=== PATIENT | male | born 1960 | race Caucasian/White ===

== ENCOUNTER 2021-03-05 07:04 | Outpatient (REF) | payer BC, SELFPAY ==
[2021-03-05 12:23] LABS: Alanine Aminotransferase 24 U/L (0-40); Anion Gap 12 (12-20); Aspartate Amino Transferase 21 U/L (5-37); Blood Urea Nitrogen 14 mg/dL (9-16); Calcium 9.2 mg/dL (8.4-10.2); Carbon Dioxide 26 mmol/L (22-29); Chloride 106 mmol/L (96-108); Cholesterol 214 mg/dL; Estimated Glomerular Filt Rate > 60; Glucose Fasting 82 mg/dL (60-99); HDL Cholesterol 56 mg/dL; LDL Cholesterol Calculated 141 mg/dl; Potassium 4.6 mmol/L (3.3-5.1); Sodium 139 mmol/L (135-145); Triglycerides 85 mg/dL
== END 2021-03-05 07:05 | disposition home or self-care (01) ==
LOC: HO.HMGCLDS 07:04
PROVIDERS: PCP Internal Medicine; Visit Provider Internal Medicine
DX: Z00.00 Encounter for general adult medical examination without abnormal findings (principal); C61 Malignant neoplasm of prostate; I10 Essential (primary) hypertension
CPT/HCPCS: 36415; 80048; 80061; 84450; 84460

== ENCOUNTER 2022-03-23 06:01 | Outpatient (REF) | payer BC, SELFPAY ==
[2022-03-23 11:43] LABS: Alanine Aminotransferase 20 U/L (0-40); Aspartate Amino Transferase 19 U/L (5-37); Cholesterol 217 mg/dL; Glucose Fasting 87 mg/dL (60-99); HDL Cholesterol 61 mg/dL; LDL Cholesterol Calculated 140 mg/dl; Triglycerides 81 mg/dL
== END 2022-03-23 06:02 | disposition home or self-care (01) ==
LOC: HO.HMGCLDS 06:01
PROVIDERS: PCP Internal Medicine; Visit Provider Internal Medicine
DX: Z00.01 Encounter for general adult medical examination with abnormal findings (principal); E78.5 Hyperlipidemia, unspecified
CPT/HCPCS: 36415; 80061; 82947; 84450; 84460

== ENCOUNTER 2022-11-21 08:08 | Day surgery (SDC) | payer BC, SELFPAY ==
[2022-11-21 08:30] VITALS: BMI 25.6
[2022-11-21] MEDS: Lactated Ringers 1,000 ML 50 ML IVCONT (09:12)
[2022-11-21 09:13] VITALS: BP 135/84; PULSE 72; RESP 18; TEMP 36.8; O2SAT 98
--- NOTE | 2022-11-21 11:06 | HO.ANESPROP2 ---
HPI - Anesthesia Eval Consult details Narrative: screening ho polyp PMFSH Active Problems Active Problems: All Active Problems (Updated 03/25/22 @ 09:06 by Pinky Ortiz MD) Tubular adenoma of colon (Acute) Dyslipidemia (Acute) History of prostate cancer (Acute) Bee sting allergy (Acute) Skin lesion of face (Acute) Past Medical History Medical History Bee sting allergy Dyslipidemia History of prostate cancer Prostate cancer Skin lesion of face Tubular adenoma of colon Family History Family history of problems with anesthesia: No Surgical History Surgical History (Updated 11/18/22 @ 12:58 by Sandra Liang RN) H/O arthroscopic knee surgery H/O bilateral inguinal hernia repair History of robot-assisted laparoscopic radical prostatectomy Hx of colonoscopy History of Problems with Anesthesia: No Social History Social History Housing: House Patient Tobacco Use Status: Never used Tobacco e-Cigarette/Vaping Use: Never Used Are you DNR?: No Advance Directives: No Advance Directives Information Provided: Yes Nutrition Risks: No Nutritional Risk Current occupational status: employed Cognitive needs: No Hearing needs: No Vision needs: Yes Meds Allergies Allergy/AdvReac Type Severity Reaction Status Date / Time No Known Allergies Allergy Verified 03/25/22 08:48 Active Medications: Current Medications Lactated Ringer's (Lr) 1,000 mls @ 50 mls/hr IVCONT .Q20H RENATA Last Admin: 11/21/22 09:12 Dose: 50 mls/hr Sodium Biphosphate/Sodium Phosphate (Sodium Phosphate,[place]-Dibasic 133 Ml Enema) 133 ml CO ONCE PRN PRN Reason: Poor Colonoscopy Prep Results Home Medications Medication Instructions Recorded Confirmed Last Taken Type fluticasone propionate 50 1 spray intranasal BID 03/04/21 03/04/21 Unknown History mcg/actuation nasal spray,suspension (Flonase Allergy Relief) Exam Exam Date and Time: November 21, 2022 1106 Height,Weight and Vital Signs: Height 6 ft 3 in Weight 92.986 kg Last Vital Signs Temp 98.2 F 11/21/22 09:13 Pulse 72 11/21/22 09:13 Resp 18 11/21/22 09:13 BP 135/84 11/21/22 09:13 Pulse Ox 98 11/21/22 09:13 O2 Del Method Room Air 11/21/22 09:13 Airway Mallampati Class: I TM Dist: >3cm Neck ROM: Full Loose/Missing/Broken Teeth: No Heart: rr Lungs: cta Assessment and Plan Final Anesthetic Review Family History of Problems with Anesthesia: No History of Problems with Anesthesia: No NPO: Yes ASA Class: II Final Preanesthetic Review: No Changes in Pt Med Stat, Meds/Allgs Chart Reviewed, Consent Obtained/Reviewed and Anes Risks/Benef Reviewed Patient Risk: Low Procedure Risk: Low Anesthetic Plan Anesthetic Plan: MAC: Disposition: Standard PACU
[2022-11-21 11:26] VITALS: BP 95/62; PULSE 69; RESP 17; TEMP 37; O2SAT 95
--- NOTE | 2022-11-21 11:28 | P.BOP_ITS ---
Brief Operative Note Date of Service: 11/21/22 Pre-op diagnosis: Screening Post-op diagnosis: other (Colon polyp) Procedure: Colonoscopy to the cecum and TI with hot snare polypectomy Surgeon: Freddie Adame Anesthesia: MAC Was an Carpentry Foreman used for this Procedure?: No Estimated blood loss (mL): 0 Pathology: other (A. Transverse colon polyp) Condition: stable Disposition: PACU
[2022-11-21 11:41] VITALS: BP 129/77; PULSE 62; RESP 15; O2SAT 99
[2022-11-21 11:56] VITALS: BP 128/84; PULSE 61; RESP 15; TEMP 37; O2SAT 100
--- NOTE | 2022-11-21 11:59 | OP_ITS ---
DATE OF SERVICE: 11/21/2022 SURGEON: Freddie Adame MD INDICATIONS: The patient presents for evaluation of colorectal cancer screening and personal history of tubular adenoma of the colon. Full consent obtained from him for this, including risks of bleeding and perforation. PREOPERATIVE DIAGNOSIS: POSTOPERATIVE DIAGNOSIS: PROCEDURE PERFORMED: Colonoscopy to the cecum and terminal ileum with hot snare polypectomy. ESTIMATED BLOOD LOSS: COMPLICATIONS: ANESTHESIA: Monitored anesthesia care. ASSISTANTS: SPECIMENS: PREOPERATIVE DIAGNOSES: Colorectal cancer screening and personal history of tubular adenoma of the colon. POSTOPERATIVE DIAGNOSES: Colorectal cancer screening and personal history of tubular adenoma of the colon, colon polyp, diverticulosis and internal hemorrhoids. DESCRIPTION OF PROCEDURE: The patient was placed in the left lateral decubitus position. The digital rectal exam revealed no abnormalities. The Olympus video pediatric colonoscope was entered into the rectum and advanced easily to the cecum. Once in the cecum, I did identify normal-appearing cecal pouch with appendiceal orifice and a normal-appearing ileocecal valve. The terminal ileum was cannulated and appeared normal. Scope withdrawn back in the colon. The entire cecum and ileocecal valve appeared normal. The scope was then slowly withdrawn assessing all mucosal surfaces carefully. Preparation was excellent. In the transverse colon, there was a flat but raised approximately 1.2 cm grossly adenomatous polyp which was removed in piecemeal fashion with pieces recovered by suction. Post polypectomy, there was no sign of any residual polyp nor bleeding. I did not visualize any other polyps, colitis, nor angiodysplasia. There was a mild amount of sigmoid diverticulosis. In the rectum, scope was retroflexed, visualizing internal hemorrhoids, but no other pathology. The rectal mucosa appeared normal. Scope was straightened and withdrawn from the patient. He tolerated the procedure well and was returned to recovery area in stable condition. IMPRESSION: 1. Colon polyp. 2. Diverticulosis. 3. Internal hemorrhoids. PLAN: The results of the pathology will be checked. Assuming this to be a tubular adenoma, I would recommend a followup colonoscopy in 3 years for further surveillance. He was advised not to use any aspirin and NSAIDs for 1 week. This has been discussed with his . MD EARLENE Mendez/[place] / [id number] SHERIDAN
== END 2022-11-21 12:49 | disposition home or self-care (01) ==
PROVIDERS: PCP Internal Medicine; Visit Provider Internal Medicine
PROC: 0DJD8ZZ Inspection of Lower Intestinal Tract, Via Natural or Artificial Opening Endoscopic (ICD-10-PCS; CPT 45378; principal; 2022-11-21 09:50)
DX: Z12.11 Encounter for screening for malignant neoplasm of colon (principal); Z86.010 Personal history of colon polyps; D12.3 Benign neoplasm of transverse colon; K57.30 Diverticulosis of large intestine without perforation or abscess without bleeding; K64.8 Other hemorrhoids; Z85.46 Personal history of malignant neoplasm of prostate
CPT/HCPCS: 45385; 88305

== ENCOUNTER 2023-03-27 06:49 | Outpatient (REF) | payer BC, SELFPAY | END 2023-03-27 06:50 | disposition home or self-care (01) | LOC: HO.HMGCLDS 06:49 | PROVIDERS: PCP Internal Medicine; Visit Provider Internal Medicine | DX: E78.5 Hyperlipidemia, unspecified (principal); D12.6 Benign neoplasm of colon, unspecified; Z85.46 Personal history of malignant neoplasm of prostate | CPT/HCPCS: 36415; 80048; 80061; 82306; 84450; 84460 ==

== ENCOUNTER 2023-03-27 07:32 | Outpatient (AMB) | payer BC, SELFPAY ==
--- NOTE | 2023-03-27 07:55 | MHC.PC.OV ---
Vital Signs 03/27/23 08:00 Height 6 ft 3 in Weight 208 lb BMI 26.0 BP 120/76 Blood Pressure Location Lt brachial Position Sitting Pulse 83 Pulse Source Pulse Oximeter Pulse Oximetry (%) 97 Oxygen Delivery Method Room Air Intake Visit Reasons: annual PE Intake Note: Pt is here today for his PE Allergies No Known Allergies Allergy (Verified 03/27/23 08:15) Medication List - Last Reconciled 03/27/23 by Pinky Ortiz MD epinephrine (EpiPen 2-Huy) 0.3 mg (0.3 mL) IM Q15M PRN fluticasone propionate 50 mcg/actuation (Flonase Allergy Relief) 1 spray intranasal BID Tobacco use date assessed: 03/27/23 Dental Screening Dental Screen Date: 03/27/23 Did you have a dental visit in the last 12 months?: Yes Did you have a dental problem in the last 6 months where you did not have access to dental care?: No Was dental information given to patient?: Patient has dentist HPI annual PE HPI Details 62-year-old male with hyperlipidemia , currently diet controlled, here today for his physical exam. He is up-to-date with screening colonoscopy done earlier this year November [address] Adame with removal of a tubular adenoma, repeat colonoscopy is due again in 5 years. He has been feeling well with no complaints at present time. He has history of prostate cancer currently being followed by [facility] Medical History Dyslipidemia History of prostate cancer Tubular adenoma of colon Bee sting allergy Skin lesion of face Prostate cancer Surgical History H/O bilateral inguinal hernia repair H/O arthroscopic knee surgery Hx of colonoscopy History of robot-assisted laparoscopic radical prostatectomy Social History Housing: House Patient Tobacco Use Status: Never used Tobacco e-Cigarette/Vaping Use: Never Used Current occupational status: employed Cognitive needs: No Hearing needs: No Vision needs: Yes Questionnaire PHQ-9 Over the last 2 weeks, how often have you been bothered by any of the following problems? 1. Little interest or pleasure in doing things: not at all 2. Feeling down, depressed, or hopeless: not at all 3. Trouble falling or staying asleep, or sleeping too much: not at all 4. Feeling tired or having little energy: not at all 5. Poor appetite or overeating: not at all 6. Feeling bad about yourself - or that you are a failure or have let yourself or your family down: not at all 7. Trouble concentrating on things, such as reading the newspaper or watching television: not at all 8. Moving or speaking so slowly that other people could have noticed. Or the opposite - being so fidgety or restless that you have been moving around a lot more than usual: not at all 9. Thoughts that you would be better off or of hurting yourself in some way: not at all Total score: 0 Depression Screening Interpretation: Negative Depression Screening Done: Yes 96128 - PHQ-9 Billing: Yes Source: Developed by Drs. Freddie Agrawal, Alejandra Valera, Ravindra Forrester and colleagues, with an educational roiht from [employer]. Thrive Questionnaire Date Thrive assessed: 03/27/23 I am a: Patient What is your living situation today?: I have a steady place to live Within the past 12 months, did the food you bought not last and you didn't have the money to get more?: Never true Within the past 12 months, did you worry whether your food would run out before you got money to buy more?: Never true Do you have trouble paying for medicines?: No Do you have trouble getting transportation to medical appointments?: No Do you have trouble paying your heating and electricity bill?: No Do you have trouble taking care of your child, family member or friend?: No Do you have trouble with day-to-day activities such as bathing, preparing meals, shopping, managing finances, etc.?: No Are you currently unemployed and looking for a job?: No Are you interested in more education?: No AUDIT C Alcohol Use Questionnaire (AUDIT-C) 1. How often do you have a drink containing alcohol?: Monthly or less 2. How many drinks containing alcohol do you have on a typical day when you are drinking?: 1 or 2 3. How often do you have six or more drinks on one occasion?: Never Total Score: 1 SUGAR-7 AMB Questionnaire SUGAR-7 Date SUGAR - 7 assessed: 03/27/23 Feeling nervous, anxious, or on edge: 0 = Not at all Not being able to stop or control worryin = Not at all Worrying too much about different things: 0 = Not at all Trouble relaxin = Not at all Being so restless that it is hard to sit still: 0 = Not at all Becoming easily annoyed or irritable: 0 = Not at all Feeling afraid as if something awful might happen: 0 = Not at all Total SUGAR-7 score (0-4 normal; 5-9 mild; 10-14 moderate; 15-21 severe): 0 Source: Developed by Drs. Freddie Agrawal, Alejandra Valera, Ravindra Forrester and colleagues, with an educational rohit from [employer]. SUGAR-7 Assessment Billing SUGAR-7 Assessment Tool: SUGAR-7 Assessment 67953 Review of Systems Const Denies fatigue, Reports fever(s), Denies headache(s), Denies malaise and Denies weakness Eyes Details: Currently being followed by Dr. Haywood, ophthalmology, was told that he has beginning cataracts Reports blurry vision (Worse at night) ENT Reports Normal hearing present, Denies dizziness, Denies dry mouth, Denies otalgia, Denies headache(s) and Denies nasal congestion Card Denies chest pain, Denies irregular heart rhythm, Denies lightheadedness, Denies palpitations and Denies dyspnea Resp Denies cough, Denies dyspnea and Denies wheezing GI Denies abdominal pain, Denies melena, Denies hematochezia, Denies change in bowel habits and Denies heartburn Denies hematuria, Denies difficulty urinating, Denies dysuria, Denies penile discharge, Denies testicular mass, Denies urinary hesitancy and Denies urinary incontinence Musc Details: Pain in right knee when going downhill Denies abnormal gait, Denies back pain, Denies arthralgias, Denies joint swelling, Denies muscle cramps, Denies muscle weakness and Denies tingling Skin/Breast Denies lesions and Denies rash Neuro Reports Normal hearing present, Denies abnormal gait, Denies dizziness, Denies headache(s), Denies Sensory deficit (Neuro), Denies tingling, Denies paresthesias and Denies weakness Psych Reports as per HPI Endo Denies cold intolerance, Denies fatigue, Denies polyphagia, Denies polydipsia, Denies polyuria and Denies palpitations Nura/Lymph Denies easy bleeding and Denies easy bruising Aller/Immun Denies seasonal rhinorrhea and Denies wheezing Physical exam (Primary Care) Vital Signs: Last Vital Signs Pulse 83 03/27/23 08:00 BP 120/76 03/27/23 08:00 Pulse Ox 97 03/27/23 08:00 Oxygen Delivery Method Room Air 03/27/23 08:00 BMI result Body Mass Index 26.0 Tobacco/Smoking Status: Tobacco use Status Tobacco use date assessed 03/27/23 03/27/23 07:57 Patient Tobacco Use Status Never used Tobacco 03/27/23 07:57 e-Cigarette/Vaping Use Never Used 03/27/23 07:57 PHQ-9: PHQ-9 Score PHQ-9: Total score 0 03/27/23 08:18 Depression Screening Interpretation: Negative Thrive Assessment: Date of Thrive Assessment Date Thrive assessed 03/27/23 03/27/23 08:03 Const General: cooperative, comfortable and no acute distress Nutritional Appearance: average body habitus Orientation/consciousness: patient oriented x3 Limitations: no limitations HENMT Head: Yes normal to inspection, Yes normocephalic and Yes atraumatic Ears: hearing grossly normal bilaterally, external ears normal, TM's normal bilaterally and EAC's normal General nose exam: Normal external nose present, Normal nasal mucous membranes and turbinates present and No nasal discharge present Face and sinus: Yes normal facial exam, Yes sinuses nontender and Yes face symmetric Mouth: Normal oral and palatal mucosa present, lip normal, tongue normal, oropharynx normal and moist mucous membranes Eyes Conjunctivae: conjunctivae normal Sclerae: sclerae normal Pupils: Equal, round and reactive pupils present EOM: EOMs intact bilaterally Neck Neck: Yes full ROM and Yes no lymphadenopathy Thyroid: Thyroid normal Chest Chest palpation & inspection: normal inspection of the chest Resp Effort & Inspection: normal respiratory effort and able to speak in complete sentences Auscultation: clear to auscultation bilaterally Cardio Jugular venous distension: no JVD Rate: regular rate Rhythm: regular rhythm Heart sounds: S1 normal heart sound present and S2 normal heart sound present GI Inspection: Yes normal to inspection Palpation (GI): Soft to palpation Auscultation: normal bowel sounds General: Yes no CVA tenderness Back/Spine/Pelvis Back: no CVA tenderness Skin General skin exam: no rashes or lesions noted Neuro General: patient oriented x3, gait normal, moves all extremities, no focal motor deficits and CN's II-XI intact bilaterally Cranial nerves: Yes Equal, round and reactive pupils present and Yes Normal hearing present Cognition (Neuro): normal cognition Gait exam (Neuro): Normal gait present Motor exam (neuro): 5/5 motor strength present throughout Sensory Exam: No Sensory deficit (Neuro) Extrem General: Yes normal to inspection, Yes full ROM, Yes no pedal edema and Yes normal gait Psych Appearance: grossly normal and well kempt Mental Status: mental status grossly normal Speech and movement: Normal speech and movement present Affect: normal affect Attitude: cooperative Office Procedures Flu Questionnaire Does the patient have a severe egg allergy?: No Does the patient have severe life threatening allergies?: No Does the patient have a fever or illness today?: No Has the patient ever had Guillain-[place] Syndrome?: No Has the patient ever had any past reaction to a flu shot?: No Immunizations flu vacc [id number] 6mos up(PF) 60 mcg(15 mcgx4)/0.5 mL IM syringe Performing Provider: Pinky Ortiz MD [facility] Administered by: Devika Enamorado CMA on 03/27/23 08:04 Dose Route Admin Location Dispensed Lot Number Expiration Date 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 Continue regular dental visit every 6 months and regular eye exams, at least every [address] Haywood. Continue regular exercise, hikes and bikes regularly for exercise. Instructed to do self-testicular except for any mass. He is up-to-date with her screening colonoscopy done earlier this year by Dr. Adame with removal of a tubular adenoma, procedure to be repeated in 5 years. He is up-to-date with his flu shot, shingles vaccination and Tdap, but does not want to get any further COVID vaccine (2) Dyslipidemia: Code(s): E78.5 - Hyperlipidemia, unspecified Plan: Fasting lipid panel ordered today, continue with regular exercise and adhering to healthy eating habits. (3) Tubular adenoma of colon: Code(s): D12.6 - Benign neoplasm of colon, unspecified Plan: Had a screening colonoscopy done November 2022 with removal of a tubular adenoma, to be repeated in 5 years (4) History of prostate cancer: Comment: s/p RALP 03/17/2020, followed by [facility] Code(s): Z85.46 - Personal history of malignant neoplasm of prostate Plan: Currently followed by urology (5) Bee sting allergy: Code(s): Z91.030 - Bee allergy status Plan: Patient with EpiPen Orders: Orders Influenza [id number] Immunization Today Z23 - Encounter for immunization Coding Level of Care Code Est Pt Prev Care 40-64y(69360) Diagnoses Annual visit for general adult medical examination with abnormal findings Z00.01 Dyslipidemia E78.5 Tubular adenoma of colon D12.6 History of prostate cancer Z85.46 Bee sting allergy Z91.030 Additional Codes SUGAR-7 Assessment Billing - SUGAR-7 Assessment Tool: SUGAR-7 Assessment 87503 ([id number])
[2023-03-27 08:00] VITALS: BP 120/76; PULSE 83; O2SAT 97; BMI 26.0
== END 2023-03-27 08:26 | disposition home or self-care (01) ==
PROVIDERS: Visit Provider Internal Medicine
DX: Z00.00 Encounter for general adult medical examination without abnormal findings (principal); E78.5 Hyperlipidemia, unspecified; D12.6 Benign neoplasm of colon, unspecified; Z85.46 Personal history of malignant neoplasm of prostate; Z91.030 Bee allergy status; Z23 Encounter for immunization
CPT/HCPCS: 90471; 90686; 99396

== ENCOUNTER 2024-04-06 06:58 | Outpatient (REF) | payer BC, SELFPAY ==
[2024-04-06 12:15] LABS: Alanine Aminotransferase 25 U/L (0-40); Aspartate Amino Transferase 24 U/L (5-37); Cholesterol 188 mg/dL (<200); Glucose Fasting 85 mg/dL (60-99); HDL Cholesterol 59 mg/dL (>40); LDL Cholesterol Calculated 117 mg/dL (<100); Triglycerides 63 mg/dL (<150)
== END 2024-04-06 06:59 | disposition home or self-care (01) ==
LOC: HO.HMGCLDS 06:58
PROVIDERS: PCP Internal Medicine; Visit Provider Internal Medicine
DX: E78.5 Hyperlipidemia, unspecified (principal); Z13.1 Encounter for screening for diabetes mellitus
CPT/HCPCS: 36415; 80061; 82947; 84450; 84460

== ENCOUNTER 2024-04-10 07:55 | Outpatient (AMB) | payer BC, SELFPAY ==
--- NOTE | 2024-04-10 07:57 | A.OFFPC_ITS ---
Vital Signs 04/10/24 07:59 Height 6 ft 3 in Weight 208 lb BMI 26.0 BP 124/84 Blood Pressure Location Rt brachial Position Sitting Pulse 85 Pulse Source Pulse Oximeter Pulse Oximetry (%) 99 Oxygen Delivery Method Room Air Intake Visit Reasons: Annual PE Intake Note: Pt is here today for his PE: last colonoscopy 11/21/22 Allergies yellow jacket Allergy (Intermediate, Uncoded 04/10/24 08:27) Swelling Medication List - Last Reconciled 04/10/24 by Pinky Ortiz MD epinephrine (EpiPen 2-Huy) 0.3 mg (0.3 mL) IM Q15M PRN fluticasone propionate 50 mcg/actuation (Flonase Allergy Relief) 1 spray intranasal BID Tobacco use date assessed: 04/10/24 Fall risk assessment: No Falls in past year Last assessed Fall Risk: 04/10/24 Dental Screening Dental Screen Date: 04/10/24 Did you have a dental visit in the last 12 months?: Yes Did you have a dental problem in the last 6 months where you did not have access to dental care?: Yes Was dental information given to patient?: Patient has dentist HPI Annual PE HPI Details 63 year-old male with past medical histo ry of dyslipidemia, currently diet controlled, history of prostate cancer followed by Urology, here today for his annual physical exam. He is up-to-date with her screening colonoscopy done in [address] Adame with removal of a tubular adenoma polyp, repeat colonoscopy due again in 2027. History allergy to bee stings, yellow jackets. Has had 2 separate episodes of being stung on arm, which cause severe swelling and episodes of lightheadedness, has not needed to use an EpiPen but has been brought to the ER . Needs a refill on his EpiPen prescription. Latest fasting labs showed normal lipids, fasting glucose and liver enzymes. Patient states that he has cut out a lot of junk food, and stays active. [facility] Medical History History of adenomatous polyp of colon Dyslipidemia History of prostate cancer Bee sting allergy Skin lesion of face Prostate cancer Surgical History H/O bilateral inguinal hernia repair H/O arthroscopic knee surgery Hx of colonoscopy History of robot-assisted laparoscopic radical prostatectomy Social History Housing: House Patient Tobacco Use Status: Never used Tobacco e-Cigarette/Vaping Use: Never Used Current occupational status: employed Cognitive needs: No Hearing needs: No Vision needs: Yes Questionnaire PHQ-9 Over the last 2 weeks, how often have you been bothered by any of the following problems? 1. Little interest or pleasure in doing things: not at all 2. Feeling down, depressed, or hopeless: not at all 3. Trouble falling or staying asleep, or sleeping too much: not at all 4. Feeling tired or having little energy: not at all 5. Poor appetite or overeating: not at all 6. Feeling bad about yourself - or that you are a failure or have let yourself or your family down: not at all 7. Trouble concentrating on things, such as reading the newspaper or watching television: not at all 8. Moving or speaking so slowly that other people could have noticed. Or the opposite - being so fidgety or restless that you have been moving around a lot more than usual: not at all 9. Thoughts that you would be better off or of hurting yourself in some way: not at all Total score: 0 Depression Screening Interpretation: Negative Depression Screening Done: Yes 44002 - PHQ-9 Billing: Yes Source: Developed by Drs. Freddie Agrawal, Alejandra Valera, Ravindra Forrester and colleagues, with an educational rohit from [employer]. Thrive Questionnaire Date Thrive assessed: 04/10/24 I am a: Patient What is your living situation today?: I have a steady place to live Within the past 12 months, did you worry whether your food would run out before you got money to buy more?: Never true Do you have trouble paying for medicines?: No Do you have trouble getting transportation to medical appointments?: No Do you have trouble paying your heating and electricity bill?: No Do you have trouble taking care of your child, family member or friend?: No Do you have trouble with day-to-day activities such as bathing, preparing meals, shopping, managing finances, etc.?: No Are you interested in more education?: No Please select the resources that you would like help with: None THRIVE Score: 0 AUDIT C Alcohol Use Questionnaire (AUDIT-C) 1. How often do you have a drink containing alcohol?: 2-4 times a month 2. How many drinks containing alcohol do you have on a typical day when you are drinking?: 1 or 2 3. How often do you have six or more drinks on one occasion?: Never Total Score: 2 SUGAR-7 AMB Questionnaire SUGAR-7 Date SUGAR - 7 assessed: 04/10/24 Feeling nervous, anxious, or on edge: 0 = Not at all Not being able to stop or control worryin = Not at all Worrying too much about different things: 0 = Not at all Trouble relaxin = Not at all Being so restless that it is hard to sit still: 0 = Not at all Becoming easily annoyed or irritable: 0 = Not at all Feeling afraid as if something awful might happen: 0 = Not at all Total SUGAR-7 score (0-4 normal; 5-9 mild; 10-14 moderate; 15-21 severe): 0 Source: Developed by Drs. Freddie Agrawal, Alejandra Valera, Ravindra Forrester and colleagues, with an educational rohit from [employer]. SUGAR-7 Assessment Billing SUGAR-7 Assessment Tool: SUGAR-7 Assessment 83281 Review of Systems Const Denies fatigue, Reports fever(s), Denies headache(s), Denies malaise and Denies weakness Eyes Details: Up-to-date with his eye exam, he sees Dr. Haywood, suspect glaucoma Reports blurry vision (Worse at night) ENT Reports Normal hearing present, Denies dizziness, Denies dry mouth, Denies otalgia, Denies headache(s) and Denies nasal congestion Card Denies chest pain, Denies irregular heart rhythm, Denies lightheadedness, Denies palpitations and Denies dyspnea Resp Denies cough, Denies dyspnea and Denies wheezing GI Denies abdominal pain, Denies melena, Denies hematochezia, Denies change in bowel habits and Denies heartburn Details: Sees urologist once a year for follow-up regarding his history of prostate cancer Denies hematuria, Denies difficulty urinating, Denies dysuria, Denies penile discharge, Denies testicular mass, Denies urinary hesitancy and Denies urinary incontinence Musc Denies abnormal gait, Denies back pain, Denies arthralgias, Denies joint swelling, Denies muscle cramps, Denies muscle weakness and Denies tingling Skin/Breast Details: Goes to [facility] once a year for routine skin exam Denies lesions and Denies rash Neuro Reports Normal hearing present, Denies abnormal gait, Denies dizziness, Denies headache(s), Denies Sensory deficit (Neuro), Denies tingling, Denies paresthesias and Denies weakness Psych Reports as per HPI Endo Denies cold intolerance, Denies fatigue, Denies polyphagia, Denies polydipsia, Denies polyuria and Denies palpitations Nura/Lymph Denies easy bleeding and Denies easy bruising Aller/Immun Denies seasonal rhinorrhea and Denies wheezing Physical exam (Primary Care) Vital Signs: Last Vital Signs Pulse 85 04/10/24 07:59 BP 124/84 04/10/24 07:59 Pulse Ox 99 04/10/24 07:59 Oxygen Delivery Method Room Air 04/10/24 07:59 BMI result Body Mass Index 26.0 Tobacco/Smoking Status: Tobacco use Status Tobacco use date assessed 04/10/24 04/10/24 07:59 Patient Tobacco Use Status Never used Tobacco 04/10/24 07:59 e-Cigarette/Vaping Use Never Used 04/10/24 07:59 PHQ-9: PHQ-9 Score PHQ-9: Total score 0 04/11/24 03:45 Depression Screening Interpretation: Negative Thrive Assessment: Date of Thrive Assessment Date Thrive assessed 04/10/24 04/10/24 08:15 Const General: cooperative, comfortable and no acute distress Nutritional Appearance: average body habitus Orientation/consciousness: patient oriented x3 Limitations: no limitations HENMT Head: Yes normal to inspection and Yes normocephalic Ears: external ears normal, TM's normal bilaterally and EAC's normal General nose exam: Normal external nose present, Normal nasal mucous membranes and turbinates present and No nasal discharge present Face and sinus: Yes normal facial exam and Yes face symmetric Mouth: Normal oral and palatal mucosa present, tongue normal, oropharynx normal and moist mucous membranes Eyes Conjunctivae: conjunctivae normal Sclerae: sclerae normal Pupils: Equal, round and reactive pupils present EOM: EOMs intact bilaterally Neck Neck: Yes full ROM and Yes no lymphadenopathy Thyroid: Thyroid normal Chest Chest palpation & inspection: normal inspection of the chest Resp Effort & Inspection: normal respiratory effort and able to speak in complete sentences Auscultation: clear to auscultation bilaterally Cardio Jugular venous distension: no JVD Rate: regular rate Rhythm: regular rhythm Heart sounds: S1 normal heart sound present and S2 normal heart sound present GI Inspection: Yes normal to inspection Palpation (GI): Soft to palpation Auscultation: normal bowel sounds General: Yes no CVA tenderness Back/Spine/Pelvis Back: no CVA tenderness Skin General skin exam: no rashes or lesions noted Neuro General: patient oriented x3, gait normal, moves all extremities, no focal motor deficits and CN's II-XI intact bilaterally Cranial nerves: Yes Equal, round and reactive pupils present and Yes Normal hearing present Cognition (Neuro): normal cognition Gait exam (Neuro): Normal gait present Motor exam (neuro): 5/5 motor strength present throughout Sensory Exam: No Sensory deficit (Neuro) Extrem General: Yes normal to inspection, Yes full ROM, Yes no pedal edema and Yes normal gait Psych Appearance: grossly normal and well kempt Mental Status: mental status grossly normal Speech and movement: Normal speech and movement present Affect: normal affect Attitude: cooperative Office Procedures Flu Questionnaire Does the patient have a severe egg allergy?: No Does the patient have severe life threatening allergies?: No Does the patient have a fever or illness today?: No Has the patient ever had Guillain-Rockford Syndrome?: No Has the patient ever had any past reaction to a flu shot?: No Immunizations Fluarix Triv [id number] (PF) 45 mcg (15 mcg x 3)/0.5 mL IM syringe Performing Provider: Pinky Ortiz MD Performing Location: [facility] Administered by: Devika Enamorado CMA on 04/10/24 08:41 Dose Route Admin Location Dispensed Lot Number Expiration Date [facility] [employer] Manager 0.5 mL IM Right Deltoid 0.5 mL [id number] 12/16/24 [id number] [employer] VIS Given Date VIS Provided VIS Publication Date 04/10/24 Single Vaccine 21 Eligibility Eligibility Date Funding Source Not [facility] Eligible 04/10/24 Private Results Reviewed Results Reviewed: chriss: Jayjay Cuevas Age/Sex: 63/M : 1960 Unit#: [id number] Attend Dr: Pinky Ortiz MD Re04/06/24 Status: DEP [facility] Disch: SPEC : [id number] NAOMI: 04/06/24 STATUS: COMP REQ : [id number] RECD: 04/06/[address]: Pinky Ortiz MD COMP: 04/06/24 ENTERED: 04/06/[address]: ORDERED: Glu Fasting, AST, ALT, Lipid Panel Test Result Flag Reference FBS 85 60-99 mg/dL AST (GOT) 24 5-37 U/L Slight Hemolysis ALT (GPT) 25 0-40 U/L Triglyceride 63 <150 mg/dL Desirable Triglyceride: less than 150 mg/dL Borderline High Triglyceride 150-199 mg/dL High Triglyceride: 200-499 mg/dL Very High Triglyceride: greater than or equal to 5OO mg/dL Cholesterol 188 <200 mg/dL Desirable Cholesterol: less than 200 mg/dL Borderline High Cholesterol: 200-239 mg/dL High Cholesterol: greater than 239 mg/dL LDL Calculated 117 H <100 mg/dL Desirable LDL: less than 100 mg/dL Near Optimal/Above Optimal LDL: 110-129 mg/dL Borderline High LDL: 130-159 mg/dL High LDL: 160-189 mg/dL Very High LDL: greater than or equal to 190 mg/dL HDL 59 >40 mg/dL Desirable HDL: greater than 40 mg/dL Coding Level of Care Code Est Pt Prev Care >65y(57620) Diagnoses Annual visit for general adult medical examination with abnormal findings Z00.01 History of adenomatous polyp of colon Z86.0101 History of prostate cancer Z85.46 Dyslipidemia E78.5 Bee sting allergy Z91.030 Advanced directives, counseling/discussion Z71.89 Additional Codes SUGAR-7 Assessment Billing - SUGAR-7 Assessment Tool: SUGAR-7 Assessment 46908 ([id number]) Assessment & Plan Assessment & Plan (1) Annual visit for general adult medical examination with abnormal findings: Code(s): Z00.01 - Encounter for general adult medical examination with abnormal findings Plan: Reviewed recent fasting lab results with patient. Recommended dental visit every 6 months and regular eye exams, currently being seen by Dr. Haywood Instructed to do self testicular exam check for any mass. Flu vaccine given today, does not want to get a COVID booster, up-to-date with his shingles vaccination and Tdap. Will give him his Prevnar 20 on next visit (2) History of adenomatous polyp of colon: Comment: Seen on colonoscopy done by Dr. Adame in 2022 Code(s): Z86.0101 - Personal history of adenomatous and serrated colon polyps Category: Medical Plan: Repeat colonoscopy due again in 2027 (3) History of prostate cancer: Comment: s/p RALP 03/17/2020, followed by [facility] Code(s): Z85.46 - Personal history of malignant neoplasm of prostate Category: Medical Plan: Followed by [facility] (4) Dyslipidemia: Code(s): E78.5 - Hyperlipidemia, unspecified Category: Medical Plan: Recent fasting labs showed lipids within normal limits, continue with adherence to healthy eating habits and regular exercise (5) Bee sting allergy: Code(s): Z91.030 - Bee allergy status Category: Medical Plan: Refill prescription sent in for 2 pack EpiPen (6) Advanced directives, counseling/discussion: Code(s): Z71.89 - Other specified counseling Plan: Initiated the conversation about Advanced Directives. Advanced Directives help patients prepare for current and future decisions about their medical treatment and place of care. Discussed with patient that it is a process where a patients current condition and prognosis are reviewed, their wishes for information regarding their illness are elicited, and likely medical dilemmas are presented and options discussed. Healthcare proxy form completed today. The form can be amended as needed, reviewed yearly and make changes as needed Orders: Orders Influenza [id number] Immunization 04/10/24 Z23 - Encounter for immunization Medications: Refilled epinephrine (EpiPen 2-Huy) for 2 doses 0.3 mg (0.3 mL) IM Q15M PRN 2 ea 2RF anaphylaxis Z91.030 - Bee allergy status
[2024-04-10 07:59] VITALS: BP 124/84; PULSE 85; O2SAT 99; BMI 26.0
== END 2024-04-10 08:48 | disposition home or self-care (01) ==
LOC: HO.HMCC 07:55
PROVIDERS: PCP Internal Medicine; Visit Provider Internal Medicine
DX: Z00.00 Encounter for general adult medical examination without abnormal findings (principal); E78.5 Hyperlipidemia, unspecified; Z86.0101 Personal history of adenomatous and serrated colon polyps; Z85.46 Personal history of malignant neoplasm of prostate; Z91.030 Bee allergy status; Z71.89 Other specified counseling

== ENCOUNTER → 2024-04-10 07:55 | Outpatient (BNVA) | payer BC, SELFPAY | PROVIDERS: PCP Internal Medicine; Visit Provider Internal Medicine | DX: Z00.01 Encounter for general adult medical examination with abnormal findings (principal); E78.5 Hyperlipidemia, unspecified; Z85.46 Personal history of malignant neoplasm of prostate; Z86.0101 Personal history of adenomatous and serrated colon polyps; Z91.030 Bee allergy status; Z71.89 Other specified counseling; Z23 Encounter for immunization | CPT/HCPCS: 90471; 90656; 96127 ==

== ENCOUNTER 2025-05-13 06:03 | Outpatient (REF) | payer BC, SELFPAY ==
--- OUTSIDE RECORDS SUMMARY | 2025-05-13 06:05 | XMS_ITS | Clinical Summary ---
Author Organization [facility] Address [address] [place] [phone] Phone Care Team Providers Care Meteorology Teacher Name Role Phone Pinky Ortiz MD Primary Care Provider Allergies No known active allergies Medications CIALIS 20 mg tablet Take 20 mg by mouth daily. 6 03/12/2018 Active sildenafiL (VIAGRA) 100 mg tablet Take 100 mg by mouth daily as needed. 05/21/2020 Active Active Problems No known active problems Social History Tobacco Use Types Packs/Day Years Used Date Smoking Tobacco: Never Smokeless Tobacco: Never Alcohol Use Standard Drinks/Week Comments Yes 0 (1 standard drink = 0.6 oz pur e alcohol) Education Answer Date Recorded Are you interested in more education? Not on kaleb e 10/07/2024 Are you concerned about learning? Not on file 10/07/2024 No 10/07/2024 No 10/07/2024 Digital Access Answer Date Recorded No 10/07/2024 No 10/07/2024 Reliable internet access at home? Not on file 10/07/2024 Device with a working camera? Not on file Sex and Gender Information Value Date Recorded Sex Assigned at Not on file Legal Sex Male 6:14 PM EST Gender Identity Not on file Sexual Orientation Not on file Last Filed Vital Signs Vital Sign Reading Time Taken Comments Blood Pressure - - Pulse - - Temperature - - Respiratory Rate - - Oxygen Saturation - - Inhaled Oxygen Concentration - - Weight 95.3 kg (210 lb) 07/15/2020 2:45 PM EST Height 190.5 cm (6' 3 ) 04/11/2018 3:17 PM EDT Body Mass Index 26.25 04/11/2018 3:17 PM EDT Plan of Treatment Health Maintenance Due Date Last Done Comments Adult Td,Tdap Booster 1960 LIPID PANEL 1960 DEPRESSION SCREENING 1970 HEPATITIS C SCREENING 1976 COLOGUARD 11/09/2003 COLONOSCOPY 11/09/2003 COLORECTAL CANCER SCREENING 11/09/2003 FIT TEST 11/09/2003 FOBT 11/09/2003 SIGMOIDOSCOPY 11/09/2003 VIRTUAL COLONOSCOPY 11/09/2003 PNEUMOCOCCAL VACCINES (50+ years) (1 of 1 - PCV) 2008 ZOSTER VACCINES (2 of 2) 08/01/2020 06/06/2020 INFLUENZA VACCINE (#1) 2025 9, 03/03/2018 COVID-19 VACCINE (2 - 2024-2 6 season) 2025 09/08/2020 RSV VACCINE (1 - 1-dose 75+ series) 2033 SMOKING STATUS SCREENING (On ce After 26 Yrs) Completed 07/15/2020 HEPATITIS A VACCINES Aged Out No long er eligible based on patient's age to complete this topic HIB VACCINES Aged Out No longer eligi ble based on patient's age to complete this topic IPV VACCINES Aged Out No longer eligi ble based on patient's age to complete this topic MENINGOCOCCAL VACCINES (ACWY) Aged Out No longer eligible based on patient's age to complete this topic MENINGOCOCCAL VACCINES (B) Aged Out N o longer eligible based on patient's age to complete this topic Medical Devices Not on file Insurance [facility] PPO EPO [facility] PPO [facility]PO [facility] PPO EPO [facility] PPO EPO [facility] PPO EPO Member Subscriber Plan / Payer (Ef fective 2007-Present) Name:Mason Zeferino Relation to Subscriber:Self Name:ZEFERINO CUEVAS JR Payer ID:[id number] (NAIC) Type:PPO Address: [facility] [address] [place], [place] [facility] PPO EPO [facility] PPO EPO Care Teams Meteorology Teacher Relationship Specialty Start Date End Date Pinky Ortiz MD 1963 [facility] [place] [address] PCP - General Internal Medicine 03/21/18 Additional Source Comments The information contained in this document represents components of the legal health record. It is not the complete legal health record.[facility]
[2025-05-13 10:24] LABS: Hematocrit 50.5 % (42.0-52.0); Hemoglobin 17.4 g/dl (14.0-18.0)
[2025-05-13 10:57] LABS: Alanine Aminotransferase 32 U/L (0-40); Anion Gap 11 (12-20); Aspartate Amino Transferase 29 U/L (5-37); Blood Urea Nitrogen 13 mg/dL (9-16); Calcium 9.4 mg/dL (8.4-10.2); Carbon Dioxide 29 mmol/L (22-29); Chloride 105 mmol/L (96-108); Cholesterol 212 mg/dL (<200); Estimated Glomerular Filt Rate > 60; HDL Cholesterol 60 mg/dL (>40); Potassium 4.6 mmol/L (3.3-5.1); Sodium 140 mmol/L (135-145); Triglycerides 98 mg/dL (<150)
== END 2025-05-13 06:04 | disposition home or self-care (01) ==
LOC: HO.HMGCLDS 06:03
PROVIDERS: PCP Internal Medicine; Visit Provider Internal Medicine
DX: Z13.1 Encounter for screening for diabetes mellitus (principal); E78.5 Hyperlipidemia, unspecified; Z86.0101 Personal history of adenomatous and serrated colon polyps; Z13.21 Encounter for screening for nutritional disorder
CPT/HCPCS: 36415; 80048; 80061; 82306; 84450; 84460; 85014; 85018

== ENCOUNTER 2025-05-14 07:57 | Outpatient (AMB) | payer BC, SELFPAY ==
--- OUTSIDE RECORDS SUMMARY | 2025-05-14 08:06 | XMS_ITS | Encounter Summary ---
Author Organization [facility] Address [address] [place] [address] Care Team Providers Care Stave Jointer Name Role Phone Pinky Ortiz MD Primary Care Provider Encounter Details Date Type Department Care Team (Late st Contact Info) Description 07/22/2024 Lab Requisition [facility] - Main Lab [address] [place] [id number] Remy Garcias PA [address] [facility] [address] [place] [address] Personal history of malignant neoplasm of prostate Social History Tobacco Use Types Packs/Day Years Used Date Smoking Tobacco: Never Assessed Sex and Gender Information Value Date Recorded Sex Assigned at Not on file Legal Sex Male 1:01 PM EST Gender Identity Not on file Sexual Orientation Not on file documented as of this encounter Plan of Treatment Not on file documented as of this encounter Procedures Procedure Name Priority Date/Time Associated Diagnosis Comments PROSTATE SPECIFIC ANTIGEN DIAGNOSTIC Routine 07/22/2024 10:26 AM EST Personal history of malignant neoplasm of prostate documented in this encounter Results * Prostate specific antigen diagnostic (07/22/2024 10:26 AM EST) PSA <0.06 0.00 - 4.00 ng/mL LAB CHEMISTRY METHOD 07/22/2024 2:53 PM EST [facility] Blood Venous blood specimen / Unknown 07/22/2024 10:26 AM EST 07/22/2024 1:23 PM EST Narrative [facility] - 07/22/2024 2:53 PM EST The Siemens Advia Centaur Chemiluminescent Immunoassay is used. Results obtained with different assay methods or kits cannot be used interchangeably. Results cannot be interpreted as absolute evidence of the presence or absence of malignant disease. us Remy S[facility] LAB BLOOD ORDERABLES Final Resul t [facility] [address] [place] [address], documented in this encounter Visit Diagnoses Diagnosis Personal history of malignant neoplasm of prostate documented in this encounter Care Teams Stave Jointer Relationship Specialty Start Date End Date Pinky Ortiz MD PCP - General Internal Medicine 07/22/24 documented as of this encounter
--- OUTSIDE RECORDS SUMMARY | 2025-05-14 08:06 | XMS_ITS | Clinical Summary ---
Author Organization [address] Address [address] [place] [phone] Phone Care Team Providers Care Independent Video Producer Name Role Phone Pinky Ortiz MD Primary Care Provider [phone] Social History Tobacco Use Types Packs/Day Years Used Date Smoking Tobacco: Never Assessed Sex and Gender Information Value Date Recorded Sex Assigned at Not on file Legal Sex Male 1:01 PM EST Gender Identity Not on file Sexual Orientation Not on file Plan of Treatment Health Maintenance Due Date Last Done Comments Colorectal Cancer Screening: Colonoscopy 1960 DTaP,Tdap,and Td Vaccines (1 - Tdap) 1977 Pneumococcal Vaccine: 50+ Ye ars (1 of 1 - PCV) 2008 Zoster Vaccines (1 of 2) 2008 Abdominal Aortic Aneurysm (A AA) Screen 05/17/2022 Cholesterol Screening (Lipid Panel) 05/17/2022 Hepatitis C Screening 05/17/2022 Social Influencers of Health Screening 05/17/2022 Falls Risk Assessment 11/09/2023 Depression Screening 06/19/2024 COVID-19 Vaccine (1 - 2024-2 6 season) 2025 Influenza Vaccine (#1) 2025 RSV Immunization Adult Patie nts (1 - 1-dose 75+ series) 2033 HIB Vaccines Aged Out No longer eligi ble based on patient's age to complete this topic HPV Vaccines Aged Out No longer eligi ble based on patient's age to complete this topic Hepatitis A Vaccines Aged Out No long er eligible based on patient's age to complete this topic Hepatitis B Vaccines Aged Out No long er eligible based on patient's age to complete this topic IPV Vaccines Aged Out No longer eligi ble based on patient's age to complete this topic MMR Vaccines Aged Out No longer eligi ble based on patient's age to complete this topic Meningococcal ACWY Vaccine Aged Out N o longer eligible based on patient's age to complete this topic Meningococcal B Vaccine Aged Out No l onger eligible based on patient's age to complete this topic RSV Immunization Patients Un alejandra 20 months Aged Out No longer eligible b ased on patient's age to complete this topic Varicella Vaccines Aged Out No longer eligible based on patient's age to complete this topic Insurance [employer] Care Teams Independent Video Producer Relationship Specialty Start Date End Date Pinky Ortiz MD PCP - General Internal Medicine 07/22/24
--- OUTSIDE RECORDS SUMMARY | 2025-05-14 08:06 | XMS_ITS | Clinical Summary ---
Author Organization [facility] Address [address] [place] [phone] Phone Care Team Providers Care Hoop Punch And Coiler Operator Helper Name Role Phone Pinky Ortiz MD Primary [...] topic Medical Devices Not on file Insurance [facility] PPO EPO [facility] PPO EPO [facility] PPO EPO [facility] PPO EPO Member Subscriber Plan / Payer (Ef fective 2007-Present) Name:Mason Zeferino Relation to Subscriber:Self Name:ZEFERINO CUEVAS JR Payer ID:[id number] (NAIC) Type:PPO Address: [facility] [id number] [place], [place] [facility] PPO EPO [facility] PPO EPO Care Teams Hoop Punch And Coiler Operator Helper Relationship Specialty Start Date End Date Pinky Ortiz MD [address] [facility] [place] [address] PCP - General Internal Medicine 03/21/18 Additional Source Comments The information contained in this document represents components of the legal health record. It is not the complete legal health record.[facility]
--- OUTSIDE RECORDS SUMMARY | 2025-05-14 08:06 | XMS_ITS | Patient Health Record ---
Author Organization 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 Yes How often did you have a drink containing alcohol in the past year? 2 to 4 times a month (2 points) How many drinks did you have on a typical day when you were drinking in the past year? 1 or 2 drinks (0 point) How often did you have 6 or more drinks on one occasion in the past year? 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 [employer] Section Notes: Nonsmoker; occ alcohol Nonsmoker; occ alcohol Problems Problem Type SNOMED Code ICD Code Onset Dates Problem Status W/U Status Risk Notes Problem Screening for malignant neoplasm of colon (906097255) Encounter for screening for malignant neoplasm of colon (Z12.11) Active confirmed Problem Diverticular disease of colon (367794177) Diverticulosis of large intestine without perforation or abscess without bleeding (K57.30) Active confirmed Problem Preprocedural examination (411121128625784) Preprocedural examination (Z01.818) Active confirmed Problem History of adenomatous polyp of colon (455911231) Hx of adenomatous colonic polyps (Z86.010) Active confirmed Plan Of Treatment Pending Test Test Name Order Date Pathology 11/21/2022 Future Test Test Name Order Date COLONOSCOPY 03/01/2017 COLONOSCOPY 09/14/2022 Insurance Providers Payer Name Payer Address Payer Phone Subscriber Number Group Number Insured Name Patient Relationship to Insured Coverage Start Date Coverage End Date [facility] [address] [place], [place] [id number] ZEFERINO CUEVAS Self - patient is the insured Medical (General) History Medical History History ICD Code Denies LA,DM,CVA,Lung disease,renal dise ase Reports a negative colonoscopy at the [facility] at approx age 48 Colonoscopy in 05/2017 with removal of a small tubular adenoma Prostate cancer Surgical History Surgery Date(Month/Year) Right knee ACL Bilateral inguinal hernia repairs Prostatectomy
[2025-05-14 08:26] VITALS: BP 132/80; PULSE 88; RESP 16; TEMP 36.6; O2SAT 98; BMI 25.4
--- NOTE | 2025-05-14 08:26 | MHC.PC.OV ---
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 Allergies yellow jacket Allergy (Intermediate, Uncoded 05/14/25 08:49) Swelling Medication List - Last Reconciled 05/14/25 by Pinky Ortiz MD epinephrine (EpiPen 2-Huy) 0.3 mg (0.3 mL) IM Q15M PRN fluticasone propionate 50 mcg/actuation (Flonase Allergy Relief) 1 spray intranasal BID Tobacco use date assessed: 05/14/25 Fall risk assessment: No Falls in past year Dental Screening Dental Screen Date: 05/14/25 Did you have a dental visit in the last 12 months?: Yes Did you have a dental problem in the last 6 months where you did not have access to dental care?: Yes Was dental information given to patient?: Patient has dentist HPI Annual PE HPI Details 64-year-old male presents today for his physical exam. Last colonoscopy was done November 2022 , done by Dr. Adame, with removal of a tubular adenoma polyp, repeat due again in 2027. Had recent fasting labs done , with no evidence of anemia, fasting glucose, lipids vitamin-D, liver electrolytes renal function all within normal limits except for slightly elevated LDL cholesterol. Currently being seen at [facility] due to positive history for prostate cancer, last seen earlier this year with PSA undetectable Currently sees [facility] diagnosed with squamous cell CA on left anterior neck, scheduled for Mohs surgery on May 29/2025 [facility] Medical History (Updated 05/14/25 @ 09:11 by Pinky Ortiz MD) Squamous cell carcinoma of skin of other parts of face History of adenomatous polyp of colon Dyslipidemia History of prostate cancer Bee sting allergy Surgical History H/O bilateral inguinal hernia repair H/O arthroscopic knee surgery Hx of colonoscopy History of robot-assisted laparoscopic radical prostatectomy Social History Housing: House Patient Tobacco Use Status: Never used Tobacco e-Cigarette/Vaping Use: Never Used Current occupational status: employed Cognitive needs: No Hearing needs: No Vision needs: Yes Questionnaire PHQ-9 Over the last 2 weeks, how often have you been bothered by any of the following problems? 1. Little interest or pleasure in doing things: not at all 2. Feeling down, depressed, or hopeless: not at all 3. Trouble falling or staying asleep, or sleeping too much: not at all 4. Feeling tired or having little energy: not at all 5. Poor appetite or overeating: not at all 6. Feeling bad about yourself - or that you are a failure or have let yourself or your family down: not at all 7. Trouble concentrating on things, such as reading the newspaper or watching television: not at all 8. Moving or speaking so slowly that other people could have noticed. Or the opposite - being so fidgety or restless that you have been moving around a lot more than usual: not at all 9. Thoughts that you would be better off or of hurting yourself in some way: not at all Total score: 0 Depression Screening Interpretation: Negative Depression Screening Done: Yes 46327 - PHQ-9 Billing: Yes Source: Developed by Drs. Freddie Agrawal, Alejandra Valera, Ravindra Forrester and colleagues, with an educational rohit from [employer]. Thrive Questionnaire Date Thrive assessed: 04/10/24 I am a: Patient What is your living situation today?: I have a steady place to live Within the past 12 months, did the food you bought not last and you didn't have the money to get more?: Never true Within the past 12 months, did you worry whether your food would run out before you got money to buy more?: Never true Do you have trouble paying for medicines?: No Do you have trouble getting transportation to medical appointments?: No Do you have trouble paying your heating and electricity bill?: No Do you have trouble taking care of your child, family member or friend?: No Do you have trouble with day-to-day activities such as bathing, preparing meals, shopping, managing finances, etc.?: No Are you currently unemployed and looking for a job?: No Are you interested in more education?: No Please select the resources that you would like help with: None Currently or been in a relationship where the following occur: No concerns reported THRIVE Score: 0 AUDIT C Alcohol Use Questionnaire (AUDIT-C) 1. How often do you have a drink containing alcohol?: 2-4 times a month 2. How many drinks containing alcohol do you have on a typical day when you are drinking?: 1 or 2 3. How often do you have six or more drinks on one occasion?: Never Total Score: 2 Score Reviewed/Action Taken: Yes SUGAR-7 AMB Questionnaire SUGAR-7 Date SUGAR - 7 assessed: 05/14/25 Feeling nervous, anxious, or on edge: 0 = Not at all Not being able to stop or control worryin = Not at all Worrying too much about different things: 0 = Not at all Trouble relaxin = Not at all Being so restless that it is hard to sit still: 0 = Not at all Becoming easily annoyed or irritable: 0 = Not at all Feeling afraid as if something awful might happen: 0 = Not at all Total SUGAR-7 score (0-4 normal; 5-9 mild; 10-14 moderate; 15-21 severe): 0 Source: Developed by Drs. Freddie Agrawal, Alejandra Valera, Ravindra Forrester and colleagues, with an educational rohit from [employer]. SUGAR-7 Assessment Billing SUGAR-7 Assessment Tool: SUGAR-7 Assessment 42863 Review of Systems Const Details: sees Dr Tanner in [place] Denies fatigue, Denies fever(s), Denies headache(s), Denies lethargy, Denies malaise and Denies weakness Eyes Reports blurry vision (Worse at night) ENT Reports Normal hearing present (Just had hearing exam done) and Denies headache(s) Card Denies chest pain, Denies irregular heart rhythm, Denies lightheadedness, Denies palpitations and Denies dyspnea Resp Denies cough, Denies dyspnea and Denies wheezing GI Denies abdominal pain, Denies melena, Denies hematochezia, Denies change in bowel habits and Denies heartburn Details: Sees urologist once a year for follow-up regarding his history of prostate cancer Denies hematuria, Denies difficulty urinating, Denies dysuria, Denies penile discharge, Denies testicular mass, Denies urinary hesitancy and Denies urinary incontinence Musc Denies abnormal gait, Denies back pain, Denies arthralgias, Denies joint swelling, Denies muscle cramps, Denies muscle weakness and Denies tingling Skin/Breast Details: Goes to [facility], recently diagnosed squamous skin cancer, scheduled for Mohs surgery next month Denies rash Neuro Reports Normal hearing present (Just had hearing exam done), Denies abnormal gait, Denies headache(s), Denies Sensory deficit (Neuro), Denies tingling and Denies weakness Psych Reports no additional complaints Endo Denies cold intolerance, Denies fatigue, Denies polyphagia, Denies polydipsia, Denies polyuria and Denies palpitations Nura/Lymph Denies easy bleeding and Denies easy bruising Aller/Immun Denies seasonal rhinorrhea and Denies wheezing Physical exam (Primary Care) Vital Signs: Last Vital Signs Temp 97.9 F 05/14/25 08:26 Pulse 88 05/14/25 08:26 Resp 16 05/14/25 08:26 BP 132/80 05/14/25 08:26 Pulse Ox 98 05/14/25 08:26 Oxygen Delivery Method Room Air 05/14/25 08:26 BMI result Body Mass Index 25.4 Tobacco/Smoking Status: Tobacco use Status Tobacco use date assessed 05/14/25 05/14/25 08:29 Patient Tobacco Use Status Never used Tobacco 05/14/25 08:29 e-Cigarette/Vaping Use Never Used 05/14/25 08:29 PHQ-9: PHQ-9 Score PHQ-9: Total score 0 05/14/25 08:49 Depression Screening Interpretation: Negative Thrive Assessment: Date of Thrive Assessment Date Thrive assessed 04/10/24 05/14/25 08:29 Currently or been in a relationship where the following occur: No concerns reported Const General: comfortable and no acute distress Nutritional Appearance: average body habitus Orientation/consciousness: patient oriented x3 Limitations: no limitations HENMT Head: Yes normal to inspection and Yes normocephalic Ears: external ears normal General nose exam: Normal external nose present Face and sinus: Yes face symmetric Mouth: moist mucous membranes Eyes Conjunctivae: conjunctivae normal Sclerae: sclerae normal Pupils: Equal, round and reactive pupils present EOM: EOMs intact bilaterally Neck Neck: Yes full ROM and Yes no lymphadenopathy Thyroid: Thyroid normal Resp Effort & Inspection: normal respiratory effort and able to speak in complete sentences Auscultation: clear to auscultation bilaterally Cardio Jugular venous distension: no JVD Rate: regular rate Rhythm: regular rhythm Heart sounds: S1 normal heart sound present and S2 normal heart sound present GI Inspection: Yes normal to inspection Palpation (GI): Soft to palpation Auscultation: normal bowel sounds General: Yes no CVA tenderness Back/Spine/Pelvis Back: no CVA tenderness Skin Other: Scattered hyperpigmented patches on back and trunk Neuro General: patient oriented x3, gait normal, moves all extremities and no focal motor deficits Cranial nerves: Yes Equal, round and reactive pupils present and Yes Normal hearing present (Just had hearing exam done) Cognition (Neuro): normal cognition Gait exam (Neuro): Normal gait present Motor exam (neuro): 5/5 motor strength present throughout Sensory Exam: No Sensory deficit (Neuro) Extrem General: Yes normal to inspection, Yes full ROM, Yes no pedal edema and Yes normal gait Psych Appearance: grossly normal and well kempt Mental Status: mental status grossly normal Speech and movement: Normal speech and movement present Affect: normal affect Attitude: cooperative Results Reviewed Results Reviewed: Laboratory Tests 05/13/25 06:09 Hgb 17.4 Hct 50.5 Name: Jayjay Cuevas Age/Sex: 64/M : 1960 Unit#: [id number] Attend Dr: Pinky Ortiz MD Re05/13/25 Status: DEP [facility] Disch: SPEC : [id number] NAOMI: 05/13/25 STATUS: COMP REQ : [id number] RECD: 05/13/[address]: Pinky Ortiz MD COMP: 05/13/25 ENTERED: 05/13/[address]: ORDERED: Met Prof Fast, AST, ALT, Lipid Panel, Vitamin D 25-OH Test Result Flag Reference Sodium 140 135-145 mmol/L Potassium 4.6 3.3-5.1 mmol/L CL 105 96-108 mmol/L CO2 29 22-29 mmol/L Gap 11 L 12-20 BUN 13 9-16 mg/dL Creat 0.91 0.5-1.4 mg/dL eGFR > 60 Chronic Kidney Disease: Estimated GFR < 60 mL/min/1.73m2 Severe Kidney Disease: Estimated GFR < 15 mL/min/1.73m2 FBS 82 60-99 mg/dL CA 9.4 8.4-10.2 mg/dL AST (GOT) 29 5-37 U/L ALT (GPT) 32 0-40 U/L Triglyceride 98 <150 mg/dL Desirable Triglyceride: less than 150 mg/dL Borderline High Triglyceride 150-199 mg/dL High Triglyceride: 200-499 mg/dL Very High Triglyceride: greater than or equal to 5OO mg/dL Cholesterol 212 H <200 mg/dL Desirable Cholesterol: less than 200 mg/dL Borderline High Cholesterol: 200-239 mg/dL High Cholesterol: greater than 239 mg/dL LDL Calculated 133 H <100 mg/dL Desirable LDL: less than 100 mg/dL Near Optimal/Above Optimal LDL: 110-129 mg/dL Borderline High LDL: 130-159 mg/dL High LDL: 160-189 mg/dL Very High LDL: greater than or equal to 190 mg/dL HDL 60 >40 mg/dL Desirable HDL: greater than 40 mg/dL Note: This HDL assay may give artificially low results in patients with liver disease. Vitamin D 25-OH 52.3 >30 ng/mL Health Based Reference Values* < 20 ng/mL Deficient 20-30 ng/mL Insufficient > 30 ng/mL Sufficient Coding Level of Care Code Est Pt Prev Care >65y(55445) Diagnoses Annual visit for general adult medical examination with abnormal findings Z. Dyslipidemia E78.5 History of adenomatous polyp of colon Z86.0101 History of prostate cancer Z85.46 Squamous cell carcinoma of skin of other parts of face C44.329 Additional Codes SUGAR-7 Assessment Billing - SUGAR-7 Assessment Tool: SUGAR-7 Assessment 91670 ([id number]) PHQ-9 - 06034 - PHQ-9 Billing: Yes ([id number]) Assessment & Plan Assessment & Plan (1) Annual visit for general adult medical examination with abnormal findings: Code(s): Z00. - Encounter for general adult medical examination with abnormal findings Plan: Fasting lab results reviewed with patient. Continue with regular dental visit every 6 months and currently being seen at [facility] with Dr. Tanner Take adequate calcium in diet and vitamin-D 3 at 2000 IU per cap once a day, in addition to weight-bearing exercises to help maintain good muscle tone and weight control. Up-to-date with all his vaccines, Prevnar 20 given today. Does not want to get further COVID booster or RSV vaccine. Reminded to do regular tick checks when hiking (2) Dyslipidemia: Code(s): E78.5 - Hyperlipidemia, unspecified Category: Medical Plan: Reviewed recent fasting lipid profile with patient with higher cholesterol and LDL cholesterol as compared to last check. . Continue with following a low-cholesterol diet and start doing at least 30 minutes of moderate intensity exercise 3 to 4 times a week Advised patient to make healthy food choices, eat more fruits, vegetables, whole grains, wild caught fish and low-fat dairy. Limit amount of meat and fried or fatty food products, as well as processed foods and fast foods. (3) History of adenomatous polyp of colon: Comment: Seen on colonoscopy done by Dr. Adame in 2022 Code(s): Z86.0101 - Personal history of adenomatous and serrated colon polyps Category: Medical Plan: Repeat colonoscopy due again with Dr. Adame in 2027 (4) History of prostate cancer: Comment: s/p SHERRIE 03/17/2020, followed by [facility] Code(s): Z85.46 - Personal history of malignant neoplasm of prostate Category: Medical Plan: Currently followed at [facility], with last PSA undetectable during his last visit there 07/2024 (5) Squamous cell carcinoma of skin of other parts of face: Comment: Left preauricular area, currently being seen at [facility] Code(s): C44.329 - Squamous cell carcinoma of skin of other parts of face Category: Medical Plan: Currently followed at [facility], scheduled for Mohs surgery next month, seen for follow-up every 6 months Orders: Orders Pneumococcal 20 Immunization Today Z23 - Encounter for immunization Medications: New pneumoc 20-naga conj-dip cr(PF) 0.5 mL IM ONCE 0.5 mL 0RF Z23 - Encounter for immunization
== END 2025-05-14 09:09 | disposition home or self-care (01) ==
LOC: HO.HMCC 07:58
PROVIDERS: PCP Internal Medicine; Visit Provider Internal Medicine
DX: Z00.01 Encounter for general adult medical examination with abnormal findings (principal); E78.5 Hyperlipidemia, unspecified; Z86.0101 Personal history of adenomatous and serrated colon polyps; Z85.46 Personal history of malignant neoplasm of prostate; C44.329 Squamous cell carcinoma of skin of other parts of face; Z23 Encounter for immunization

== ENCOUNTER → 2025-05-14 07:57 | Outpatient (BNVA) | payer BC, SELFPAY | PROVIDERS: PCP Internal Medicine; Visit Provider Internal Medicine | DX: Z23 Encounter for immunization (principal); Z13.31 Encounter for screening for depression; Z13.39 Encounter for screening examination for other mental health and behavioral disorders; Z91.030 Bee allergy status | CPT/HCPCS: 90471; 90677; 96127 ==